=== PATIENT | male | born 2000 | race Caucasian/White ===

== ENCOUNTER 2018-04-21 15:35 | Emergency (ER) | payer BC, OTHER ==
[~2018-04-21] VITALS: Ht 177.8 cm; Wt 74.8 kg
--- NOTE | 2018-04-21 16:00 | ED Chest Pain ---
General Stated Complaint: CHEST PAIN Source: patient Exam Limitations: no limitations History of Present Illness Date Seen by Provider: Apr 21, 2018 Time Seen by Provider: 15:57 Initial Comments To Er with c/o left sided chest pain since this morning that is always present but sometimes worsened by activities such as laughing. No nausea, diaphoresis, no shortness of breath or fevers or cough. No history of this, no palpitations. His father had a heart attack last year and when he told his girlfriend he had chest pain, she drove him to ER. 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 Allergies and Home Medications Allergies Coded Allergies: No Known Drug Allergies (Unverified , 04/21/18) Patient Home Medication List Home Medication List Reviewed: Yes Review of Systems Review of Systems Constitutional: see HPI EENTM: No Symptoms Reported Respiratory: No Symptoms Reported; Denies Shortness of Air, Denies SOA With Exertion, Denies SOA at Rest Cardiovascular: See HPI, Chest Pain; Denies Edema, Denies Irregular Heart Rate , Denies Lightheadedness, Denies Palpitations, Denies Syncope Genitourinary: No Symptoms Reported Musculoskeletal: no symptoms reported Skin: no symptoms reported Psychiatric/Neurological: No Symptoms Reported Endocrine: No Symptoms Reported Hematologic/Lymphatic: No Symptoms Reported Physical Exam Vital Signs Capillary Refill : Height, Weight, BMI Height: '" Weight: lbs. oz. kg; BMI Method: General Appearance: No Apparent Distress, WD/WN HEENT: PERRL/EOMI, TMs Normal Respiratory: Normal Breath Sounds, No Accessory Muscle Use, No Respiratory Distress Cardiovascular: Regular Rate, Rhythm, Normal Peripheral Pulses Gastrointestinal: Normal Bowel Sounds, Non Tender, Soft Extremity: Normal Capillary Refill, Normal Inspection Neurologic/Psychiatric: Alert, Oriented x3 Skin: Normal Color, Warm/Dry Progress/Results/Core Measures Results/Orders My Orders Orders - BRIE LOPEZ APRN Ibuprofen Tablet (Motrin Tablet) (04/21/18 16:00) Chest Pa/Lat (2 View) (04/21/18 15:55) Ekg Tracing (04/21/18 15:55) Progress Progress Note : Progress Note EKG is normal sinus rhythm rate of [address] segment changes no ectopy. Normal intervals. Departure Impression Primary Impression: Chest wall pain Disposition: 01 HOME, SELF-CARE Condition: Stable Departure-Patient Inst. Decision time for Depature: 16:00 Patient Instructions: Chest Pain That Is Not Caused by the Heart (DC) Add. Discharge Instructions: 1. Tylenol and Motrin for pain control 2. Return to ER for any concerns or worsening symptoms 3. See your doctor next week BRIE LOPEZ APRN Apr 21, 2018 16:00
[2018-04-21] MEDS: IBUPROFEN 800 MG (MOTRIN) TAB PO ONE (16:06)
--- NOTE | 2018-04-21 16:13 | Diagnostic Imaging Report ---
INDICATION: Anterior chest wall pain for approximately 7-8 hours.. TECHNIQUE: Two view chest 4:25 PM CORRELATION STUDY: None FINDINGS: The heart size, mediastinal configuration and pulmonary vasculature are within normal limits. The lungs are clear with no consolidating infiltrate. There is no significant pleural effusion or pneumothorax. Mild pectus excavatum deformity inferior chest wall. IMPRESSION: 1. No radiographic evidence for acute abnormality of the chest. Dictated by: Dictated on workstation # [id number]
[2018-04-21 16:15] VITALS: BP 121/68
== END 2018-04-21 16:15 | disposition home or self-care (01) ==
LOC: EDUNIT# 15:35 → ER 15:37
DX: R07.89 Other chest pain (principal); Z82.49 Family history of ischemic heart disease and other diseases of the circulatory system
CPT/HCPCS: 71046; 93005